=== PATIENT | male | born 1990 | race Caucasian/White ===

== ENCOUNTER 2018-03-04 17:01 | Emergency (ER) | payer MEDICAID ==
[2018-03-04] MEDS ORDERED: NS 500 ML IV ONE (17:08)
--- NOTE | 2018-03-04 17:38 | EDPHY ---
H & P Time Seen by Provider: 03/04/18 17:08 HPI/ROS: HPI Chest pain. 27-year-old male by private vehicle. The patient states that he was working out with weights last night at his gym. He works out on a regular basis. He reports that he felt fine during his workout. He then had a sauna and then took a cold shower. While in the cold shower he developed mid substernal pain which she states is worse with taking a deep breath he also had associated pain in his mid thoracic spine. However, he denies radiation of the pain from the chest to the spine or between his shoulder blades. He reports he got home took an aspirin and the pain in his back went away. However, the substernal chest discomfort has persisted. He reports that the pain has been worse with deep breathing. He reports that it is better now but still present at a lower level. He denies any other significant past medical history. Nonsmoker. No IV drugs or street drugs. No history of hypertension, hyperlipidemia. No significant family history. He is not obese. ROS: Constitutional: No fever, no chills. No weakness. Respiratory: No cough. No shortness of breath. Cardiac: As above, no palpitations. Gastrointestinal: No abdominal pain, no vomiting, no diarrhea. Musculoskeletal: No back pain. No neck pain. No myalgias or arthralgias. Skin: No rashes. Neurological: No headache. No focal weakness or altered sensation. Past medical history: ADD. Social history: Nonsmoker. No methamphetamine, cocaine or other street drugs. Here by himself. Denies alcohol. Physical Exam: General Appearance: Alert, pleasant, no distress. This patient is responding to questions appropriately and in full sentences. This patient appears well- hydrated and well-nourished. Eyes: Pupils equal and round no pallor or injection. No lid edema, erythema or injection. Respiratory: There are no retractions, lungs are clear to auscultation with good air movement bilaterally. Cardiovascular: Regular rate and rhythm. No murmur. Pain is not reproducible on palpation of the chest wall. Gastrointestinal: Abdomen is soft and nontender, no masses, bowel sounds normal. No focal tenderness at McBurney's point. No Stinson sign. Neurological: Motor sensory function is grossly intact. Cranial nerves are normal. Gait is normal. Skin: Warm and dry, no rashes. Musculoskeletal: Neck is supple and nontender. Extremities are symmetrical. All joints range without pain or impingement. Psychiatric: No agitation. No depression. Database: EKG: EKG time is 5:28 p.m.; EKG shows a narrow complex normal sinus rhythm with a ventricular rate of 87. The FL, QRS, QT intervals are within normal limits. There are no ST-T wave changes indicative of ischemic or injury pattern. No evidence of right heart strain. Interpreted by me. Imaging: Chest x-ray PA and lateral; the cardiac mediastinal silhouette is unremarkable. No evidence of infiltrate. Left-sided pneumothorax measuring 22-25 mm. No other acute cardiopulmonary disease process noted. Interpreted by me. Procedures: Emergency department course: Vital signs reviewed and are normal. EKG obtained and reviewed by myself. 6:05 p.m., patient re-evaluated. Vital signs stable. He appears comfortable. Results of his chest x-ray and diagnosis of left-sided pneumothorax discussed with him. General surgery paged. 6:25 p.m., patient re-evaluated by myself and on-call general surgeon Dr. Rober Ventura. Plan will be to discharge the patient to home. He will return to the emergency department tomorrow morning for a repeat chest x-ray. Dr. Ventura will be consulted at that time. He is on-call for another day. This plan was discussed with the patient. He is in full agreement. Return to emergency department precautions were reviewed with him. All of his questions were answered. He understands his follow-up. He was discharged in good condition. Differential Diagnosis: The differential diagnosis on this patient includes but is not limited to musculoskeletal chest pain, pneumothorax, esophageal spasm. Acute coronary syndrome, aortic dissection, pericarditis, myocarditis, pulmonary embolism unlikely. This represents a partial list of diagnoses considered. These considerations are based on history, physical exam, past history, reassessment and diagnostic testing. Smoking Status: Never smoked Constitutional: Initial Vital Signs Temperature (C) 37.0 C 03/04/18 17:03 Heart Rate 95 03/04/18 17:03 Respiratory Rate 16 03/04/18 17:03 Blood Pressure 100/63 03/04/18 17:03 O2 Sat (%) 97 03/04/18 17:03 O2 Delivery Mode Room Air O2 (L/minute) 2 Allergies/Adverse Reactions: No Known Allergies Allergy (Verified 03/04/18 17:02) Home Medications: Medication Instructions Recorded Adderall 10 mg Tablet 03/04/18 Medical Decision Making - Data Points Laboratory Results: Laboratory Results 03/04/18 17:35 Medications Given: Discontinued Medications Sodium Chloride (Ns) 500 mls @ 1,000 mls/hr IV EDNOW ONE PRN Reason: Protocol Stop: 03/04/18 17:37 Last Admin: 03/04/18 18:13 Dose: 500 mls Point of Care Test Results: Chemistry 03/04/18 17:43 POC Troponin I 0.00 ng/mL ng/mL (0.00-0.08) Departure - Departure Disposition: Home, Routine, Self-Care Clinical Impression: Pneumothorax on left Condition: Good Instructions: Spontaneous Pneumothorax (ED) Additional Instructions: Read and follow provided instructions. No strenuous physical activity. Return to the emergency department tomorrow morning at 8:00 a.m. for repeat chest x-ray and evaluation by Dr. Ventura. Return to the emergency department for worsening pain, difficulty breathing or other serious concerns. Referrals: THERON SANDS [Other] - As per Instructions
--- NOTE | 2018-03-04 18:15 | CPEKG ---
Heart Rate: 87 RR Interval: 690 P-R Interval: 132 QRSD Interval: 106 QT Interval: 356 QTC Interval: 429 P [place]: 62 QRS [place]: 23 T Wave [place]: 67 EKG Severity - NORMAL ECG - EKG Impression: SINUS RHYTHM Electronically Signed By: Abby Akhtar 04-Mar-2018 22:03:38
[2018-03-04 18:47] VITALS: BP 125/78
--- NOTE | 2018-03-04 19:26 | GCON ---
[f rep st] CONSULTATION REFERRING PHYSICIAN: Abby Akhtar DO REASON FOR CONSULTATION: Pneumothorax. HISTORY: Abdulaziz Castañeda is a 27-year-old male who was working out yesterday. After his weightlifting, he went to the steam room and practiced taking very deep breaths. He then got in a very cold shower. In that time frame, he had the sudden onset of pain in his left chest, and was slightly short of breath. He went home, and his roommate suggested strongly that he go to the hospital for evaluation, but he opted not to. He is feeling better today, but thought better of it, and came in for evaluation approximately 24 hours after the event. A chest x-ray shows an approximately 20% pneumothorax. He is not symptomatic at this time. He has never had a prior pneumothorax. He does not recall any trauma, and he is a nonsmoker. PHYSICAL EXAMINATION: GENERAL: He is awake and alert. LUNGS: Breath sounds are minimally diminished at the left apex. CHEST: Stable to AP and lateral compression. CARDIAC: Shows a regular rate and rhythm. ASSESSMENT AND PLAN: We have talked about the options. I have told him that since this has not gotten significantly worse in 24 hours, there is a chance it will get better on its own. I told him option 1 for his care is to do nothing, and carry on. I have told him that this option carries the risk of the pneumothorax enlarging, and going on to a tension pneumothorax, but I thought that was a very small possibility. Option number 2 is to return tomorrow morning for a followup film, and if the pneumothorax is getting smaller, to continue to follow as an outpatient. If it is the same size ( or larger), then I would suggest he follow option number three. Option three would be the placement of small caliber pneumothorax with a Heimlich valve and follow up as an outpatient. I have explained to him this would require some effort on his part to "self PEEP." It would require going back for followup films, and when there was no air leak in the lung up, then the tube would come out. Option four would be to do this as an inpatient. I do not feel that is necessary at this time. I have explained to him that if he develops a 2nd spontaneous pneumothorax on either side ( 33% risk), consideration will be given to pleurodesis. At this point, he would like to proceed with option 2, which would include going home, and returning if he becomes short of breath, or at the very minimum coming back tomorrow morning for a followup chest x-ray. /[id number]/MODL MTDD
== END 2018-03-04 18:47 | disposition home or self-care (01) ==
DX: J93.9 Pneumothorax, unspecified (principal); E86.9 Volume depletion, unspecified
CPT/HCPCS: 84484-PO

== ENCOUNTER 2018-04-19 15:16 | Emergency (ER) | payer MEDICAID ==
--- NOTE | 2018-04-19 16:10 | EDPHY ---
H & P Stated Complaint: Upper back pain, feels SOB today;past hx spont pneumothorax Time Seen by Provider: 04/19/18 16:09 - Medical/Surgical History Hx Asthma: No Hx Chronic Respiratory Disease: No Hx Diabetes: No Hx Cardiac Disease: No Hx Renal Disease: No Hx Cirrhosis: No Hx Alcoholism: No Hx HIV/AIDS: No Hx Splenectomy or Spleen Trauma: No Other PMH: pneumothorax (not requiring chest tube 2019). ADHD - Social History Smoking Status: Never smoked Constitutional: Initial Vital Signs Temperature (C) 36.7 C 04/19/18 15:17 Heart Rate 82 04/19/18 15:17 Respiratory Rate 16 04/19/18 15:17 Blood Pressure 105/54 L 04/19/18 15:17 O2 Sat (%) 96 04/19/18 15:17 O2 Delivery Mode Room Air Allergies/Adverse Reactions: No Known Allergies Allergy (Verified 04/19/18 15:17) Home Medications: Medication Instructions Recorded Adderall 10 mg Tablet 03/04/18 Medical Decision Making - Diagnostics Imaging Results: Imaging Impressions Chest X-Ray 04/19/18 16:11 Impression: Normal. No evidence for recurrent pneumothorax. Imaging: I viewed and interpreted images myself ED Course/Re-evaluation: CHIEF COMPLAINT: Shortness of breath, spinal pain HISTORY OF PRESENT ILLNESS: The patient is a 27 y/o male with a history of a spontaneous pneumothorax complaining of spinal pain and shortness of breath onset this morning. On March 04, 1 month ago, he was seen in this emergency department for similar symptoms and was diagnosed with a spontaneous pneumothorax. He was discharged home with plan for a repeat chest x-ray the next today. This morning he woke up and had spinal pain which felt similar to the prior pneumothorax. He denies recent injury or trauma. This pain is exacerbated when he takes a deep breath and he feels mildly short of breath. Denies headache, chest pain, abdominal pain , urinary or bowel complaints, numbness, paresthesias, fevers. REVIEW OF SYSTEMS: A 10 point review of systems was performed and is negative with the exception of the elements mentioned in the history of present illness. PHYSICAL EXAM: HR, BP, O2 Sat, RR. Temp noted General Appearance: Alert, well hydrated, appropriate, and non-toxic appearing. Head: Atraumatic without scalp tenderness or obvious injury Eyes: Pupils equal, round, reactive to light and accommodation, EOMI, no trauma , no injection. Ears: Clear bilaterally, no perforation, normal landmarks Nose: Atraumatic, no rhinorrhea, clear. Throat: There is no erythema or exudates, no lesions, normal tonsils, mucus membranes moist. Neck: Supple, 2+ carotid upstroke, nontender, no lymphadenopathy. Respiratory: No retractions, no distress, no wheezes, and no accessory muscle use. Lungs are clear to auscultation bilaterally. Cardiovascular: Regular rate and rhythm, no murmurs, rubs, or gallops. Bilateral carotid, radial, dorsalis pedis, and posterior tibial pulses intact. Good capillary refill all extremities. Gastrointestinal: Abdomen is soft, nontender, non-distended, no masses, no rebound, no guarding, no peritoneal signs. Musculoskeletal: Normal active ROM of all extremities, atraumatic. Neurological: Alert, appropriate, and interactive. The patient has normal DTRs and non-focal cranial nerves, motor, sensory, and cerebellar exam. Skin: No rashes, good turgor, no nodules on palpation. Past medical history: Spontaneous pneumothorax, ADHD Past surgical history: Denies Family history: Denies Social history: Lives in [place], single, employed DIAGNOSTICS/PROCEDURES/CRITICAL CARE TIME: Chest X-ray: Negative, no pneumothorax DIFFERENTIAL DIAGNOSIS: The differential diagnosis for the patient's shortness of breath included but was not limited to spinal pain, pneumonia, myocardial infarction, acute mountain sickness, high altitude pulmonary edema, congestive heart failure, and pulmonary embolus. MEDICAL DECISION MAKING: The patient is a 27 y/o male with a history of a spontaneous pneumothorax presenting with spinal pain and shortness of breath onset this morning. His physical exam is normal and he has a normal respiratory exam. Chest x-ray ordered. 1620: I reviewed patients' chest x-ray; radiologist reading still pending. 1630: Patient's chest x-ray is normal per radiologist, there is no pneumothorax appreciated. 1436: Reassessed patient and discussed imaging findings. I have advised him to take ibuprofen for the pain. Return precautions provided; patient is comfortable with this plan. Departure - Departure Disposition: Home, Routine, Self-Care Clinical Impression: Spinal pain Condition: Good Instructions: Thoracic Pain (ED), Back Pain (ED), Shortness of Breath (ED) Additional Instructions: 1. There is no pneumothorax on your chest x-ray. 2. Take ibuprofen as directed for pain. 3. Followup with your primary doctor within 72 hours for reevaluation. 4. Return to the emergency department for fever, worsening pain, shortness of breath or difficulty breathing, abdominal pain, blood in urine or other concerns. Referrals: Ángel Hogan MD [[facility] [place] Primary Care Provider] - As per Instructions Report Scribed for: Brennan Velasco Report Scribed by: Rima Gallegos Date of Report: 04/19/18 Time of Report: 16:19
[2018-04-19 16:40] VITALS: BP 124/53
== END 2018-04-19 16:40 | disposition home or self-care (01) ==
DX: R06.02 Shortness of breath (principal); M54.9 Dorsalgia, unspecified